=== PATIENT | female | born 1930 | race Caucasian/White ===

== ENCOUNTER 2016-10-09 06:50 | Inpatient (IN) | payer MEDICARE, OTHER ==
--- NOTE | 2016-09-11 16:41 | NUR ---
JOINT REPLACEMENT PREOP CLASS PATIENT ATTENDED JOINT REPLACEMENT PREOP CLASS. CASE MANAGEMENT CONTACT INFORMATION PROVIDED. EDUCATION WAS PROVIDED REGARDING WHAT TO EXPECT BEFORE, DURING AND AFTER SURGERY. INCLUDING: OVERVIEW OF ANATOMY AND PHYSIOLOGY HOSPITAL TREATMENT SCHEDULE THERAPY DEMONSTRATION CASE MANAGEMENT RESPONSIBILITIES DISCHARGE PLANNING EQUIPMENT NEEDS JOINT REPLACEMENT WORKBOOK ANTI-COAGULATION SURGERY STRONG NUTRITIONAL PROTOCOL DISCHARGE INSTRUCTIONS [facility] [place] PATIENT PORTAL, WITH INSTRUCTIONS CJR AND PREOP SURVERY PREOP BATHING- CHG GIVEN ALL PATIENT'S QUESTIONS ANSWERED TO THEIR SATISFACTION. PATIENTS AND COACHES ENCOURAGED TO CALL WITH ANY ADDITIONAL QUESTIONS OR CONCERNS. CM FOLLOWING FOR TRANSITIONAL CARE PLANNING NEEDS DURING HOSPITALIZATION.
[~2016-10-09] VITALS: Ht 152.4 cm; Wt 74.1 kg
[2016-10-09] VITALS (23 sets, daily range): BP systolic 98–141; BP diastolic 54–64; PULSE 49–68; RESP 12–24; TEMP 96.5–98.4; O2SAT 93–99; Ht 152.4 cm; Wt 74.1 kg
[~2016-10-09 06:50] MED LIST: ASCO-297 PO; ASPI-914 PO; BETA1TAB17 PO; CHOL10003 PO; CYAN10009 PO; FAMO20TA8 PO; FAMOTIDINE 20mg IVPB 50 ML IV ONE; LIDOCAINE 1% (10mg/ml) 2ml SDV SQ ONE; MELOXICAM 15 MG TABLET PO ONE; METOCLOPRAMIDE 10mg/2ml INJECTION IV ONE; TIMO15DR15 LEFT EYE; UBID100C18 PO; VIT1CAPS5 PO; [UNRECOGNIZED DRUG - CODE] PO
--- OUTSIDE RECORDS SUMMARY | 2016-10-09 06:57 | XMS REPORT | Continuity of Care Document ---
Author Author [facility] Organization [facility] Address Unknown Phone Unavailable Support Name Relationship Address Phone JUSTINA HOANG MD Caregiver [address] [place] [address] Unavailable JUSTO DENNY MD Caregiver [address] [facility] [place] [address] Unavailable EDUARD DAVIS MD Caregiver [address] [place] [address] Unavailable HARJEET ROMAN DO Caregiver Unknown Unavailable MARYELLENJOVANA JO-ANN Next Of Kin [address] [place], [place] [id number] Insurance Providers Guarantor Ephraim Sanz Address [address] [place], [place] [id number] Email [email or web address] Payer [employer] Policy Number [id number] Subscriber's Name Ephraim Sanz Relationship 18 Self Effective Date 95 Payer Medicare Policy Number [id number] Subscriber's Name Ephraim Sanz Relationship 18 Self Effective Date 95 Advance Directives Directive Response Recorded Date/Time Ordered Resuscitation Status Full Code 04/10/16 3:07am DPOA for Healthcare Only Y DPOA shared by patient's daughters 04/10/16 4:54pm Living Will Yes 04/10/16 5:31am Problems Active Problems Medical Problem Onset Date Status Bradycardia Unknown Chronic DJD (degenerative joint disease) Unknown Chronic Dyslipidemia Unknown Chronic Glaucoma Unknown Chronic HTN (hypertension) Unknown Chronic Past Problems Medical Problem Onset Date Chest pain Unknown Medications Current Home Medications Medication Dose Units Route Directions Days Qty Instructions Start Date Ascorbic Acid (Vitamin C) 1,000 Mg Tablet 1,000 Mg Oral Daily 09/17 Aspirin As Needed 04/10/16 Aspirin (Low Dose Aspirin Ec) 81 Mg Tablet. 1 Tab Oral Daily 30 Tablet 04/10/16 Beta-Carotene(A) W-C & E/Min (Vision Vitamins) 1 Tab Tablet 1 Tab Oral Daily 02/04/10 Cholecalciferol (Vitamin D) 1,000 Unit Capsule 1,000 Unit Oral Daily 07/14/09 Famotidine (Pepcid) 20 Mg Tablet 1 Tab Oral Bedtime 30 Days 30 Tablet 04/10/16 Lisinopril/Hydrochlorothiazide (Lisinopril-Hctz 20-25MG Tab) 1 Tab Tablet 1 Tab Oral Daily 07/14/09 Timolol Maleate (Timolol Maleate 0.5%) 15 Ml Drops 1 Drop Left Eye Only Twice A Day 07/08/13 Ubidecarenone (Co Q-10) 100 Mg Capsule 100 Mg Oral Daily 07/14/09 Past Home Medications Medication Directions Ordered Status Ultimate Bone Supp , 1 Tab Oral Twice A Day 07/08/13 Discontinued Social History Social History Problem Response Recorded Date/Time Onset Date Status Reason for Hospitalization chest pain 04/10/2016 4:52pm Not Applicable Not Applicable Chewing Tobacco Status No 08/06/2013 7:41am Not Applicable Not Applicable Hx Substance Use No 04/10/2016 1:52am Not Applicable Not Applicable Hx Alcohol Use No 04/10/2016 1:52am Not Applicable Not Applicable Has the pt used tobacco in the last 12 months No 04/10/2016 5:34am Not Applicable Not Applicable Query Response Start Date Stop Date Smoking Status Never smoker Hospital Discharge Instructions Instructions: Care Instructions: I was in the hospital because (patient own words): pain in chest Discharge Diet: regular Discharge Activity: As tolerates Follow Up Appointments: Schedule follow-up appointment with Dr. Roman in one to 2 weeks for reevaluation. Call Dr. uKo's office to schedule follow-up appointment for stress testing [phone] Pending Lab / Results: No Pending Lab Patient Instructions: New medications: One baby aspirin daily (as a precaution) Pepcid (famotidine) 20 mg daily at bedtime for acid reflux as a possible cause of chest pain Expected Signs/Symptoms: none Notify Physician If: Recurrent chest pain especially if associated with sweating or difficulty breathing, heartburn, nausea or vomiting During Business Hours:: Please call the physician's office at After Business Hours:: Please call [phone] and have the mixer operator tablets page the physician. Pain Management/Treatment: Tylenol 1-2 tablets 4 times daily as needed; one aspirin daily for pain is fine Wound/Incision Care: NA Durable Medical Equipment: NA Condition at time of discharge: Good Plan of Care Discharge Date 04/10/16 5:23pm Disposition 01 DISCHARGED HOME, SELF-CARE Instructions/Education Provided DI for Chest Pain Prescriptions See Medication Section Care Plan and Goals See Discharge Instructions Section Functional Status Query Response Date Recorded Mobility Status Ambulatory April 10, 2016 6:33am Assistive Devices None April 10, 2016 6:33am Activity Limitations None April 10, 2016 6:33am Feeding Ability Independent April 10, 2016 6:33am Toileting Ability Independent April 10, 2016 6:33am Grooming Ability Independent April 10, 2016 6:33am Dressing Ability Independent April 10, 2016 6:33am Driving Ability Independent April 10, 2016 6:33am Housework Ability Independent April 10, 2016 6:33am Meal Preparation Ability Independent April 10, 2016 6:33am Stair Climbing Ability Independent April 10, 2016 6:33am Ability to complete ADL's impeded by No change April 10, 2016 6:33am Cognitive/Perceptual Impairments None April 10, 2016 6:33am Preferred Method of Learning Listening April 10, 2016 6:33am Allergies, Adverse Reactions, Alerts Allergen Type Severity Reaction Status Last Updated No Known Drug Allergies Allergy Unknown Active 04/10/16 Immunizations Immunization Event Date Type Not Given Reason Dose Number 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[employer] VIS Given Pneumococcal conjugate PCV 13 04/10/16 Not Given Patient Refused Med Query Response on File Recorded Date/Time Hx Influenza Vaccination No 04/10/16 5:34am Hx Pneumococcal Vaccination Y unknown 04/10/16 5:34am Hx Influenza Vaccination No 04/10/16 5:34am Vital Signs Acute Vital Signs Vital Response Date/Time Temperature (Fahrenheit) 96.3 deg F (96.8 - 99.1) 04/10/2016 3:32pm Temperature (Calculated Celsius) 35.99568 degrees C (36.0 - 37.3) 04/10/2016 3:32pm Pulse Rate (adult) 56 bpm (60 - 100) 04/10/2016 3:32pm Respiratory Rate 18 breaths/min (10 - 20) 04/10/2016 3:32pm O2 Sat by Pulse Oximetry 98 % (90 - 100) 04/10/2016 3:32pm Oxygen Delivery Method Room Air 04/10/2016 3:32pm Blood Pressure 133/67 mm Hg 04/10/2016 3:32pm Blood Pressure Source Automatic Cuff 04/10/2016 3:32pm Height (Feet) 5 feet 04/10/2016 4:54pm Height (Inches) 2.00 inches 04/10/2016 4:54pm Weight (Kilograms) 71.700 kg 04/10/2016 7:25am Body Mass Index (BMI) 29.0 04/10/2016 5:29am Results Laboratory Results Test Name Result Units Flags Reference Collection Date/Time Result Date/ Time Comments White Blood Count 8.1 T/MM3 4.5-11.0 04/10/2016 1:42am 04/10/2016 1: 46am Red Blood Count 4.15 M/MM3 4.00-5.20 04/10/2016 1:42am 04/10/2016 1: 46am Hemoglobin 13.6 GM/DL 12-16 04/10/2016 1:42am 04/10/2016 1:46am Hematocrit 39.8 % 36-46 04/10/2016 1:42am 04/10/2016 1:46am Mean Corpuscular Volume 95.9 UM3 80-100 04/10/2016 1:42am 04/10/2016 1: 46am Mean Corpuscular Hemoglobin 32.8 UUG 26-34 04/10/2016 1:42am 2015 1:46am Mean Corpuscular Hemoglobin Concent 34.2 GM/DL 31-37 04/10/2016 1:42am 04/10/2016 1:46am RDW Standard Deviation 42.1 FL 36.9-50.2 04/10/2016 1:42am 04/10/2016 1 :46am Platelet Count 233 T/MM3 130-400 04/10/2016 1:42am 04/10/2016 1:46am Mean Platelet Volume 9.5 UM3 9.4-12.4 04/10/2016 1:42am 04/10/2016 1: 46am Neutrophils (%) (Auto) 50.4 % 33-66 04/10/2016 1:42am 04/10/2016 1: 46am Lymphocytes (%) (Auto) 33.2 % 23-45 04/10/2016 1:42am 04/10/2016 1: 46am Monocytes (%) (Auto) 7.1 % 0-9.0 04/10/2016 1:42am 04/10/2016 1:46am Eosinophils (%) (Auto) 8.7 % H 0-4 04/10/2016 1:42am 04/10/2016 1:46am Basophils (%) (Auto) 0.5 % 0-2 04/10/2016 1:42am 04/10/2016 1:46am Immature Granulocyte % (Auto) 0.1 % 0.0-0.5 04/10/2016 1:42am 2015 1:46am Absolute Neutrophils (auto) 4.1 T/MM3 1.8-7.7 04/10/2016 1:42am 2015 1:46am Absolute Lymphocytes (auto) 2.7 T/MM3 1-4.8 04/10/2016 1:42am 2015 1:46am Absolute Monocytes (auto) 0.6 T/MM3 0-0.8 04/10/2016 1:42am 04/10/2016 1:46am Absolute Eosinophils (auto) 0.7 T/MM3 H 0-0.5 04/10/2016 1:42am 2015 1:46am Absolute Basophils (auto) 0.0 T/MM3 0-0.2 04/10/2016 1:42am 04/10/2016 1:46am Absolute Immature Granulocyte (auto 0.01 T/MM3 0.00-0.03 04/10/2016 1: 42am 04/10/2016 1:46am Icterus Index < 2 0-7 04/10/2016 1:42am 04/10/2016 2:14am Chemistry Specimen Hemolysis < 15 0-25 04/10/2016 3:59pm 04/10/2016 4 :32pm 0-25: Specimen Exhibited No Hemolysis. Turbidity < 20 0-20 04/10/2016 1:42am 04/10/2016 2:14am Sodium Level 139 MEQ/L 134-144 04/10/2016 1:42am 04/10/2016 2:14am Potassium Level 4.4 MEQ/L 3.6-5 04/10/2016 1:42am 04/10/2016 2:14am Chloride Level 100 MEQ/L 98-107 04/10/2016 1:42am 04/10/2016 2:14am Carbon Dioxide Level 26 MEQ/L 22-30 04/10/2016 1:42am 04/10/2016 2: 14am Anion Gap 13 MEQ/L 5-15 04/10/2016 1:42am 04/10/2016 2:14am Blood Urea Nitrogen 32.0 MG/DL H 7-17 04/10/2016 1:42am 04/10/2016 2: 14am Creatinine 0.7 MG/DL 0.7-1.2 04/10/2016 1:42am 04/10/2016 2:14am BUN/Creatinine Ratio 46 RATIO H 6-26 04/10/2016 1:42am 04/10/2016 2: 14am Glomerular Filtration Rate Calc 80 04/10/2016 1:42am 04/10/2016 2: 14am Glucose Level 98 MG/DL 65-110 04/10/2016 1:42am 04/10/2016 2:14am Calculated Osmolality 275 MOSM/KG 261-280 04/10/2016 1:42am 04/10/2016 2:14am Calcium Level 9.7 MG/DL 8.4-10.2 04/10/2016 1:42am 04/10/2016 2:14am Total Bilirubin 0.70 MG/DL 0.20-1.30 04/10/2016 1:42am 04/10/2016 2: 14am Alkaline Phosphatase 87 U/L 38-126 04/10/2016 1:42am 04/10/2016 2:14am Total Protein 7.0 G/DL 6.3-8.2 04/10/2016 1:42am 04/10/2016 2:14am Albumin 4.1 G/DL 3.5-5.0 04/10/2016 1:42am 04/10/2016 2:14am Globulin 2.9 G/DL 2.4-3.6 04/10/2016 1:42am 04/10/2016 2:14am Albumin/Globulin Ratio 1.4 RATIO 1.1-2.2 04/10/2016 1:42am 04/10/2016 2 :14am Aspartate Amino Transf (AST/SGOT) 20 U/L 14-36 04/10/2016 1:42am 2015 2:14am Alanine Aminotransferase (ALT/SGPT) 29 U/L 9-52 04/10/2016 1:42am 04/10 2:14am Troponin I < 0.012 ng/ml 0-0.12 04/10/2016 3:59pm 04/10/2016 4:32pm Troponin values with a difference of 55% increase from orginal troponin value represent a true biological DELTA value. (%increase Calc=Orginal Troponin value, divided by subsequent Troponin value, multiplied by 100) Lipase 166 U/L 23-300 04/10/2016 1:42am 04/10/2016 2:14am Hemoglobin A1c 5.5 % L 6.1-7.9 04/10/2016 3:48am 04/10/2016 6:58am < 6.0 NON-DIABETIC RANGE 6.1-7.9 [facility] TARGET RANGE >8.0 ACTION SUGGESTED Name: EPHRAIM SANZ Unit #: [id number] : [id number] Sex: F Admit Date: 04/10/16 Loc / Svc: MED Discharge Date: DIAGNOSTIC IMAGING REPORT Report #: [id number] [place], [place] INDICATION: ITS.REASON: left-sided chest pain PROCEDURE: CHEST 2-VIEWS UPRIGHT (PA \T\ LAT) Encounter: Initial COMPARISON: None FINDINGS: The lungs are clear without evidence of focal abnormal airspace opacity. There is no pleural effusion or pneumothorax. Calcified right upper lobe granuloma. The heart size, mediastinal contours and pulmonary vascularity are within normal limits. Degenerative change and bony demineralization in the spine. Age-indeterminate upper lumbar compression fracture. IMPRESSION: No acute cardiopulmonary disease. . Procedures No known history of procedures. Encounters Encounter Location Arrival/Admit Date Discharge/Depart Date Attending Provider Discharged Inpatient (obs) [facility] 04/10/16 3:02am 04/10/16 5: 23pm EDUARD DAVIS MD
--- OUTSIDE RECORDS SUMMARY | 2016-10-09 06:57 | XMS REPORT | Continuity of Care Document ---
Author Author [facility] Organization [facility] Address Unknown Phone Unavailable Allergies Medications Problems Procedures Code Description Performed By Performed On 14.73 ANTERIOR MECHAN VITRECT Gabe Brice MD 04/17/2013 14.9 OTHER POST SEGMENT OPS Gabe Brice MD 04/17/2013 Results Test Result Range HEMOGLOBIN - 04/17/13 06:08 MEAN CELL VOLUME 96.2 fl 80.0-100.0 HEMOGLOBIN 13.7 gm/dL 12.0-16.0 METABOLIC PANEL, BASIC - 04/17/13 06:08 POTASSIUM 3.9 mmol/L 3.5-5.3 EST GFR (MDRD) > 60 mL/min > 59 ANION GAP 9 mmol/L 5-15 EST CrCl (CG) 48 mL/min > 59 GLUCOSE 105 mg/dL 70-99 CALCIUM 9.0 mg/dL 8.5-10.1 BLOOD UREA NITROGEN 23 mg/dL 7-20 CREATININE 0.7 mg/dL 0.6-1.0 SODIUM 140 mmol/L 135-148 CHLORIDE 103 mmol/L 98-110 CARBON DIOXIDE 28 mmol/L 21-32 Encounters ACCT No. Visit Date/Time Discharge Status Pt. Type Provider Facility Loc./Unit Complaint [id number] 04/17/2013 05:29:00 2012 09:17:00 DIS Outpatient Yuniel FORREST, Gabe Pittman [facility]
--- OUTSIDE RECORDS SUMMARY | 2016-10-09 06:57 | XMS REPORT | Continuity of Care Document ---
Author Author [facility] Organization [facility] Address Unknown Phone Unavailable Support Name Relationship Address Phone TREY SAEED MD Caregiver [address] [place] [address] [place] [phone] CYDNEY CARBALLO FACS, MD Caregiver [address] [place] [address] [place] [phone] JO-ANN GARCIA Next Of Kin [address] [place] [address] Insurance Providers Payer Name Policy Number Subscriber Name Relationship Medicare [id number] Ephraim Sanz 18 Self [employer] [id number] Ephraim Sanz 18 Self Advance Directives Directive Response Recorded Date/Time Dr Carbajal Resuscitation Status Full Code 04/07/14 2:13pm Problems No known problems or medical conditions. Medications Medication Dose Route Sig Days/Qty Instructions Order Date Discontinued Date Status Lisinopril/Hydrochlorothiazide 1 Tab PO DAILY 07/14/09 Active Beta-Carotene(A) W-C & E/Min 1 Tab PO DAILY 07/14/09 Active Cholecalciferol 1,000 Unit PO DAILY 07/14/09 Active Ubidecarenone 100 Mg PO DAILY 07/14/09 Active Ascorbic Acid 1,000 Mg PO DAILY 07/14/09 Active [Ultimate Bone Supp] 1 Tab PO TWICE A DAY 07/08/13 Active Timolol Maleate 1 Drop LEFT EYE TWICE A DAY 07/08/13 Active Social History Social History Problem Response Recorded Date/Time Smoking Status Never smoker 04/07/2014 2:08pm Chewing Tobacco Status No 08/06/2013 7:41am Hx Substance Use No 04/07/2014 1:24pm Hx Alcohol Use No 04/07/2014 1:24pm Has the pt used tobacco in the last 12 months No 04/07/2014 1:24pm Query Response Start Date Stop Date Smoking Status Never smoker Hospital Discharge Instructions No hospital discharge instructions. Plan of Care No plan of care. Functional Status No functional status results. Allergies, Adverse Reactions, Alerts Allergen Type Severity Reaction Status Last Updated No Known Drug Allergies Allergy Unknown Active 06/13/09 Immunizations Name Given Type Hx Influenza Vaccination No Historical Hx Pneumococcal Vaccination Y OVER FIVE YEARS AGO Historical Hx Influenza Vaccination No Historical Vital Signs Acute Vital Signs Vital Response Date/Time Temperature (Fahrenheit) 98.0 deg F (96.8 - 99.1) Temperature (Calculated Celsius) 36.38916 degrees C (36.0 - 37.3) Temperature Source Temporal Pulse Rate (adult) 60 bpm (60 - 100) Respiratory Rate 16 breaths/min (10 - 20) O2 Sat by Pulse Oximetry 99 % (90 - 100) Oxygen Delivery Method Room Air Blood Pressure 129/61 mm Hg Blood Pressure Source Automatic Cuff Height 5 ft 2 in Weight 163 lb Body Mass Index 29.0 kg/m^2 Results Test Source Date Result Interp. Ref. Range Comments Anion Gap July 15, 2009 5:05am 6.8 MEQ/L N 5-15 BUN/Creatinine Ratio July 15, 2009 5:05am 22 RATIO DN 6-26 Basophils # (Auto) July 15, 2009 5:05am 0.0 T/MM3 N 0-0.2 Basophils (%) (Auto) July 15, 2009 5:05am 0.5 % N 0-2 Blood Urea Nitrogen July 15, 2009 5:05am 10.9 MG/DL DN 7-17 Calcium Level July 15, 2009 5:05am 9.0 MG/DL N 8.4-10.2 Calculated Osmolality July 15, 2009 5:05am 267 MOSM/KG N 261-280 Carbon Dioxide Level July 15, 2009 5:05am 28 MEQ/L DN 22-30 Chloride Level July 15, 2009 5:05am 105 MEQ/L N 98-107 Creatinine July 15, 2009 5:05am 0.5 MG/DL L 0.7-1.2 Eosinophils # (Auto) July 15, 2009 5:05am 0.7 T/MM3 H 0-0.5 Eosinophils (%) (Auto) July 15, 2009 5:05am 9.7 % H 0-4 Glucose Level July 15, 2009 5:05am 82 MG/DL N 65-110 Hematocrit July 18, 2009 5:35am 29.7 % L 36-46 Hemoglobin July 15, 2009 5:05am 9.7 GM/DL DL 12-16 Lymphocytes # (Auto) July 15, 2009 5:05am 1.6 T/MM3 N 1-4.8 Lymphocytes (%) (Auto) July 15, 2009 5:05am 22.4 % L 23-45 Mean Corpuscular Hemoglobin July 15, 2009 5:05am 30.6 UUG N 26-34 Mean Corpuscular Hemoglobin Concent July 15, 2009 5:05am 32.0 GM/DL N 31-37 Mean Corpuscular Volume July 15, 2009 5:05am 95.6 UM3 N 80-100 Mean Platelet Volume July 15, 2009 5:05am 10.1 UM3 N 7.4-10.4 Monocytes # (Auto) July 15, 2009 5:05am 0.6 T/MM3 N 0-0.8 Monocytes (%) (Auto) July 15, 2009 5:05am 8.3 % N 0-9.0 Neutrophils # (Auto) July 15, 2009 5:05am 4.3 T/MM3 N 1.8-7.7 Neutrophils (%) (Auto) July 15, 2009 5:05am 59.1 % N 33-66 Platelet Count July 15, 2009 5:05am 207 T/MM3 N 130-400 Potassium Level July 15, 2009 5:05am 3.5 MEQ/L L 3.6-5 RDW Standard Deviation July 15, 2009 5:05am 41.9 FL N 36.9-50.2 Red Blood Count July 15, 2009 5:05am 3.17 M/MM3 DL 4.00-5.20 Sodium Level July 15, 2009 5:05am 140 MEQ/L N 134-144 Tests Not Done June 14, 2009 9:47am Not done - Has specimen been collected/obtained? Y Urine Bilirubin June 14, 2009 9:47am Negative - Has specimen been collected/obtained? Y Urine Blood June 14, 2009 9:47am Negative - Has specimen been collected/obtained? Y Urine Collection Type June 14, 2009 9:47am Voided - Has specimen been collected/obtained? Y Urine Color June 14, 2009 9:47am Yellow - Has specimen been collected/obtained? Y Urine Glucose (UA) June 14, 2009 9:47am Negative - Has specimen been collected/obtained? Y Urine Ketones June 14, 2009 9:47am Negative - Has specimen been collected/obtained? Y Urine Leukocyte Esterase June 14, 2009 9:47am Negative - Has specimen been collected/obtained? Y Urine Nitrite June 14, 2009 9:47am Negative - Has specimen been collected/obtained? Y Urine Protein June 14, 2009 9:47am Negative - Has specimen been collected/obtained? Y Urine Specific [place] June 14, 2009 9:47am 1.015 - Has specimen been collected/obtained? Y Urine Turbidity June 14, 2009 9:47am Clear - Has specimen been collected/obtained? Y Urine Urobilinogen June 14, 2009 9:47am Normal EU/DL - Has specimen been collected/obtained? Y Urine pH June 14, 2009 9:47am 8.0 - Has specimen been collected/ obtained? Y White Blood Count July 15, 2009 5:05am 7.3 T/MM3 N 4.5-11.0 Methicillin-Resist S.aureus DNA PCR May 23, 2009 9:53am Negative - Glomerular Filtration Rate Calc July 15, 2009 5:05am 119 - MRSA Specimen Source May 23, 2009 9:53am Nasal - Gram Stain Knee, Intraoperative Site-Right July 14, 2009 3:40pm Procedures Procedure Status Date Provider(s) Colonoscopy with polypectomy and biopsy completed 04/08/14 CYDNEY CARBALLO MD, FACS, CWS
--- OUTSIDE RECORDS SUMMARY | 2016-10-09 06:57 | XMS REPORT | Referral Summary ---
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 Name Role Phone Kyleigh Roman Primary Care Physician [phone] Encounter VC Date(s): 04/20/16 - 04/20/16 [facility], [address] [place] [id number] Discharge Disposition: 01-Home or Self Care Attending Physician: Yobani Gonzalez APRN Admitting Physician: Yobani Gonzalez APRN Vital Signs Most recent to 1 oldest [Reference Range]: Temperature Tympanic 36.4 degC [36.6-38.1 degC] *LOW* (04/20/16 2:18 PM) Peripheral Pulse 71 bpm Rate [60-100 bpm] (04/20/16 2:18 PM) Blood Pressure 118/64 mmHg [90-140/60-90 mmHg] (04/20/16 2:18 PM) SpO2 97 % (04/20/16 2:18 PM) Problem List Condition Effective Dates Status Health Status Informant Abnormal reflex Active (finding)(Confirmed) Benign essential Active hypertension (disorder)(Confirmed ) Constipation Active (disorder)(Confirmed ) DDD (degenerative Active disc disease), lumbar(Confirmed) DM (diabetes Active mellitus), type [address] uncntr(Confirmed) Hand Resolved numbness(Confirmed) Esparza's Active reflex(Confirmed) Hypercholesterolemia Active (Confirmed) Hyperlipidemia(Confi Active rmed) Hypertension(Confirm Active ed) Leg Resolved weakness(Confirmed) Low back pain Active (finding)(Confirmed) Neck pain Active (finding)(Confirmed) Osteoarthritis(Confi Resolved rmed) Overweight(Confirmed Active ) Skin Active cancer(Confirmed) Skin sensation Active disturbance (finding)(Confirmed) Allergies, Adverse Reactions, Alerts No Known Medication Allergies Medications ascorbic acid 1000 mg oral tablet 1,000 mg 1 tabs, Oral, Daily, 0 Refill(s) Start Date: 04/11/16 Status: Ordered aspirin 81 mg, Oral, Daily, 0 Refill(s) Start Date: 04/11/16 Status: Ordered cholecalciferol 1000 intl units oral tablet 1,000 Intl_Units 1 tabs, Oral, Daily, # 30 tabs, 0 Refill(s) Start Date: 04/11/16 Status: Ordered Co Q-10 100 mg, Oral, Daily, 0 Refill(s) Start Date: 04/11/16 Status: Ordered famotidine 20 mg oral tablet 20 mg 1 tabs, Oral, Bedtime (once a day), 0 Refill(s) Start Date: 04/11/16 Status: Ordered lisinopril-hydrochlorothiazide 20 mg-25 mg oral tablet 1 tabs, Oral, Daily, # 90 tabs, 4 Refill(s), Pharmacy: [facility] Start Date: 09/22/15 Status: Ordered PreserVision Oral, Daily, 0 Refill(s) Start Date: 04/11/16 Status: Ordered timolol maleate 0.5% ophthalmic solution 1 drops, Eye-Left, BID, 0 Refill(s) Start Date: 04/11/16 Status: Ordered Vitamin B-12 0 Refill(s) Start Date: 04/20/16 Status: Ordered Vitamin B12 0 Refill(s) Start Date: 04/20/16 Status: Ordered Results No data available for this section Immunizations Vaccine Date Refusal Reason tetanus-diphth toxoids (Td) adult/adol 10/19/02 Procedures Procedure Date Related Diagnosis Body Site Colonoscopic polypectomy1 04/08/14 Mammogram 2011 Bone density scan 06/12/07 Colonoscopy 1989' c-scope normal per patient 1989 Cataract extraction Knee replacement2 Surgery-knee x3 1Tubular adenoma 1, chronic active proctitis, although patient is without clinical symptoms and would not recommend medical treatment unless rectal bleeding or diarrhea develops. Likely not need a repeat colonoscopy unless symptoms warrant due to age. 2right Social History Social History Type Response Smoking Status Never smoker Assessment and Plan No data available for this section
[2016-10-09] MEDS ORDERED: LR 1,000 ML IV SCH (07:00)
[2016-10-09] MEDS ORDERED: ACETAMINOPHEN 500 MG TABLET PO ONE (07:00)
[2016-10-09] MEDS ORDERED: ONDANSETRON 4mg/2ml INJECTION IV ONE (07:00)
[2016-10-09] MEDS ORDERED: NOZIN NASAL SWAB NS ONE ×2 (07:00→11:45)
[2016-10-09 07:34] LABS: ANION GAP 15 MEQ/L (5-15); BUN/CREATININE RATIO 68 RATIO (6-26); CALCIUM 9.8 MG/DL (8.4-10.2); CHLORIDE 101 MEQ/L (98-107); CO2 - CARBON DIOXIDE 29 MEQ/L (22-30); CREATININE 0.6 MG/DL (0.7-1.2); GLOMERULAR FILTRATION RATE 95; GLUCOSE 102 MG/DL (65-110); POTASSIUM 3.9 MEQ/L (3.6-5); SODIUM 145 MEQ/L (134-144)
[2016-10-09] MEDS ORDERED: DEXAMETHASONE 4mg/ml - 1ml INJECTION IV ONE (08:00)
--- NOTE | 2016-10-09 08:12 | ANESPREOP ---
Anesthesia Record Date and Time DATE: 10/09/16 TIME: 08:07 Proposed Surgical Procedure LEFT TOTAL KNEE ARTHROPLASTY NPO since: mn Allergies: Coded Allergies: No Known Drug Allergies (Verified Allergy, Unknown, 10/09/16) Ht/Wt/BMI Height: 5 ' 0.00 " Weight: 70.400 kg BMI: 30.3 kg/m2 Vital Signs Date Time Temp Pulse Resp B/P Pulse Ox O2 Delivery O2 Flow Rate FiO2 10/09/16 07:12 98.4 67 14 141/64 95 Room Air Medications Inpatient Medications Current Medications Medications (Trade) Dose Ordered Sig/Antionette Start Time Stop Time Status Last Admin Dose Admin Lactated Ringer's (Lactated Ringers) 1,000 ml @ 50 mls/hr Q20H 10/09/16 07:00 10/09/16 07:52 50 MLS/HR Ascorbic Acid (Vitamin C) 1,000 Mg Tablet, 1,000 MG PO DAILY, (Reported) Last Taken: on 10/01/16 Aspirin *EC* (Low Dose Aspirin EC) 81 Mg Tablet.dr , 1 TAB PO DAILY, (Reported) Last Taken: on 10/01/16 Beta-Carotene(A) W-C & E/Min (Vision Vitamins) 1 Tab Tablet, 1 TAB PO DAILY, (Reported) Last Taken: on 10/01/16 Cholecalciferol (Vitamin D) 1,000 Unit Capsule, 1, 000 UNIT PO DAILY, (Reported) Last Taken: on 10/01/16 Cyanocobalamin (Vitamin B-12) (Vitamin B-12) 1,000 Mcg Tablet, 1 TAB PO DAILY, (Reported) Last Taken: on 10/01/16 Famotidine (Famotidine) 20 Mg Tablet, 1 TAB PO HS, (Reported) Last Taken: on Unknown Date & Time Lisinopril/Hydrochlorothiazide ( Lisinopril-Hctz 20-25MG Tab) 1 Tab Tablet, 1 TAB PO DAILY, (Reported) Last Taken: on 10/08/16 0700 Timolol Maleate 0.5% (Timolol Maleate 0.5%) 15 Ml Drops, 1 DROP LEFT EYE BID, (Reported) Last Taken: on 10/08/16 0800 Ubidecarenone (Co Q-10) 100 Mg Capsule, 100 MG PO HS, (Reported) Last Taken: on 10/01/16 Vit A/Vit C/Vit E/Zinc/Copper (Preservision Areds Softgel) 1 Each Capsule, 1 CAP PO DAILY, (Reported) Last Taken: on 10/01/16 Currently on Beta Judit: No Medical/Surgical History Anesthesia PMH: Reports: *Hypertension, Arthritis (OA PER HX), Hyperlipidemia, Other (Esparza's reflex) Smoking Status: Never smoker Use Chewing Tobacco?: No Second Hand Exposure: No Substance Use Type: does not use Alcohol Intake: none HX of Last Menstrual Period: POST MENOPAUSAL Past Surgical History Orthopedic Surgeries: Yes - RIGHT KNEE, RIGHT ANKLE Abdominal Surgeries: Genitourinary Surgeries: Cardiac Surgeries: Endocrine Surgeries: Reproductive Surgeries: Neurological Surgeries: Ear Surgeries: Nose Surgeries: Throat Surgeries: Other Surgeries: Yes - COLONOSCOPY, CATARACT PER HX Anesthesia Adverse Reactions: FOUND none Family Hx of Anesthesia Advers: none Hx of Motion Sickness: No Pertinent Findings Laboratory Tests 10/09/16 07:19 Physical Exam Respiratory: Bilat breath sounds equal, Lungs clear Cardiovascular: FOUND Regular rate, rhythm Airway Assessment Mallampati Score: II TMD: 3 Fingerbreadths Neck Extension: Fair Overall Assessment: No Airway Concerns ASA: 2 Plan Anesthesia Plan: LMA, GETA Regional: Spinal Peripheral Nerve Block: Saphenous - LT Discussion Discussed risks/options/alternatives of anesthesia and questions answered. Patient consents. Nursing pain assessment noted. Present: Family Member Attestation Statement Prior to the delivery of any anesthetic medication, I examined the patient, developed the plan, obtained the patient's consent and discussed the risk and benefits of the procedure with the patient/guardian. MASOUD MCDUFFIE CRNA October 09, 2016 08:12
--- NOTE | 2016-10-09 09:46 | NUR ---
CM CM ATTEMPTED VISIT. PT IS AT PROCEDURE. NO FAMILY IS PRESENT IN THE ROOM. CM CONTACT INFORMATION IS LEFT AT THE BEDSIDE.
[2016-10-09] MEDS ORDERED: TRANEXAMIC ACID 1,000 MG in NORMAL SALINE 100 ML IV ONE ×2 (10:00→11:00)
[2016-10-09] MEDS ORDERED: CEFAZOLIN 2 GM VIAL IV ONE (10:00)
[2016-10-09] MEDS ORDERED: EPINEPHRINE 0.25 MG, BUPIVACAINE 0.25% 75 MG, MORPHINE SULFATE 15 MG, KETOROLAC 60 MG i... INJ ONE ×5 (11:00)
--- NOTE | 2016-10-09 11:09 | PDOPERATE ---
Operative Report Date of Operation 10/09/16 Side: Left Preoperative Diagnosis: knee primary DJD Postoperative Diagnosis Same as preoperative diagnosis. Operation/Procedure: total knee arthroplasty (left) Surgeon Mere Sauer MD Blind Eyeletter GISELLA Cole Complications None. Regional Block: Spinal Estimated Blood Loss See Anesthesia Record. Fluids Please See Anesthesia Record. Description of Operation Ms. Sanz and her left knee were identified and marked in the the preoperative holding area. She was then brought back to the operating suite and proper anesthesia was administered. She was then positioned supine on the operating table. The left lower extremity was then prepped and draped in my normal sterile fashion. Timeout was performed with all operating room personnel. The leg was exsanguinated and tourniquet inflated 250 mmHg. the tourniquet was let down after femoral cuts. A standard anterior incision followed by a medial parapatellar approach was utilized. She had severe disease in the lateral compartment and less so in the patellofemoral compartment and medial compartment. A distal femoral cut was made in 5 of valgus using intramedullary guide. The femur was sized at a 4 and rotation set using the epicondylar axis. Distal femoral cuts were performed. A proximal tibial cut was made using extramedullary guide. Remaining osteophytes and meniscus were removed. Gaps were checked and they were well balanced and rectangular. Her bone quality was very poor especially in the proximal tibia and there was some impaction of the proximal tibia anteriorly with trialing. Trial components were placed with a 11 mm spacer. This allowed for full range of motion and the patella tracked well. The knee was stable throughout range of motion. The patella was resurfaced with the knee in extension to a size 29. The tibia rotation was then marked and the tibia stamped at the proper rotation at a size 4. Due to her bone quality I did placed a 50 mm stem extension on the tibia. The bone was prepared for cementing and all components cemented into place and allowed to cure in extension. Betadine solution was used for 3 minutes during the curing period and then fully irrigated out with 1 L of normal saline. The tourniquet was deflated and hemostasis obtained with electrocautery. After the cement had cured the knee was taken through range of motion check for balance and stability which were good. Vancomycin powder was placed into the wound. The arthrotomy was closed with #1 Vicryl. The remainder of the wound was then closed by my school health assistant utilizing 2-0 vycral in the subcutaneous tissue. 4-0 monocryl was used in the subcuticular layer followed by dermabond and a sterile dressing. After closure the patient will be transferred to the recovery room under the care of anesthesia. TAWANNA SAUER MD October 09, 2016 11:09
[2016-10-09] MEDS: NORMAL SALINE 1,000 ML IV SCH (11:40)
[2016-10-09] MEDS ORDERED: SENNOSIDES 8.6 MG TABLET PO PRN (11:45)
[2016-10-09] MEDS ORDERED: DiphenhydrAMINE 25 MG CAPSULE PO PRN (11:45)
[2016-10-09] MEDS ORDERED: NAPROXEN 220 MG TABLET PO PRN (11:45)
[2016-10-09] MEDS ORDERED: LORAZEPAM 1 MG TABLET PO PRN (11:45)
[2016-10-09] MEDS ORDERED: PRN ORDERS MC (11:45)
[2016-10-09] MEDS ORDERED: ONDANSETRON 4mg/2ml INJECTION IV PRN (11:45)
[2016-10-09] MEDS ORDERED: DiphenhydrAMINE 50 MG/ML INJECTION IV PRN (11:45)
--- NOTE | 2016-10-09 12:11 | ANESPD ---
Peripheral Nerve Blockade Physician: Tan Sauer MD Date: 10/09/16 Surgical Procedure: left TKA Discussion Discussed risks/options/alternatives of anesthesia and questions answered. Patient consents. Nursing pain assessment noted. Block Start: 11:55 Block Stop: 12:00 Block Employed: Adductor Canal, Single Injection Indication: post-operative pain Approach: left side confirmed Position: supine Patient: Consent, risks/benefits discussed, Informed Monitors: EKG, SpO2, NIBP IV Sedation: Yes (post op) Initial Vital Signs First Documented Vital Signs Date Time Temp Pulse Resp B/P Pulse Ox O2 Delivery O2 Flow Rate FiO2 10/09/16 07:12 98.4 67 14 141/64 95 Room Air Post Vital Signs Vital Signs Date Time Temp Pulse Resp B/P Pulse Ox O2 Delivery O2 Flow Rate FiO2 10/09/16 07:12 98.4 67 14 141/64 95 Room Air Prep: chlorhexadine/ETOH, sterile technique Ultrasound Used?: Yes Nerve Simulator Needle Depth: 3 Muscle Response: No Parathesia/Pain: none Injectate Ropivacaine (%): 0.5 Ropivacaine (mL): 20 Was Epi 1:200,000 Used?: No Injection Injection made incrementally with constant monitoring and aspiration every [5] ml. MASOUD MCDUFFIE CRNA October 09, 2016 12:11
--- NOTE | 2016-10-09 12:35 | NUR ---
ARRIVAL PT TO ROOM 111 PER CART. PT TRANSFERRED FROM CART TO BED WITH ASSIST OF 3 WITH SLIDE BOARD. PT DENIES PAIN AT THIS TIME. ABLE TO WIGGLE TOES. PT DENIES SOA. PT ON RA. HEART RATE 50'S. VS STABLE. PT RESTING IN BED WITH ALARM. CALL LIGHT WITHIN REACH. WILL CONTINUE TO MONITOR.
--- NOTE | 2016-10-09 12:35 | DI ---
Indication: ITS.REASON: POSTOP left knee replacement PROCEDURE: KNEE LEFT 2 VIEW: Encounter: Initial Comparison: None Findings: Postoperative changes of left total knee replacement are seen. There is expected postoperative subcutaneous gas. No evidence of hardware failure or acute fracture. No retained radiopaque surgical instruments or sponges. Overlying material causing artifact. Impression: New left total knee prosthesis without evidence of immediate complication. .
--- NOTE | 2016-10-09 12:36 | ANESPO ---
Post-Op Note Date 10/09/16 Time: 12:30 Status Pt Participated in Evaluation: Pt participated in person Vital Signs Date Time Temp Pulse Resp B/P Pulse Ox O2 Delivery O2 Flow Rate FiO2 10/09/16 12:30 58 18 107/58 98 Room Air 10/09/16 12:25 97.0 Respiratory Function: Airway patent, Regular respirations Cardiovascular Function: Regular pulse Mental Status: Alert/oriented Pain Level Intensity: 0 Unable to Assess Pain Due To: Medicated/Sleeping Hydration: IV infusing Complications during Recovery None apparent Post-Anesthesia Notes moves lower extremeties Follow-Up Instructions Instructions Per Surgeon MASOUD MCDUFFIE CRNA October 09, 2016 12:36
[2016-10-09] MEDS: ACETAMINOPHEN 325 MG TABLET PO SCH ×3 (13:48→21:02)
[2016-10-09] MEDS: TRAMADOL 50 MG TABLET PO PRN ×2 (13:49→14:40)
[2016-10-09] MEDS ORDERED: VANCOMYCIN 1 GRAM INJECTION IV ONE (14:00)
[2016-10-09] MEDS ORDERED: ROPIVACAINE 0.5% (5mg/ml) 30ml INJ INJ ONE (14:00)
[2016-10-09] MEDS ORDERED: MIDAZOLAM 2mg/2ml INJECTION IV ONE (14:00)
[2016-10-09] MEDS: INSULIN ASPART 100 UNIT/ML SQ PRN ×2 (14:18→23:28)
[2016-10-09] MEDS: NOZIN NASAL SWAB NS SCH ×2 (14:19→21:18)
[2016-10-09] MEDS: CEFAZOLIN 2 G in NORMAL SALINE 100 ML IV SCH (17:01)
--- NOTE | 2016-10-09 18:54 | NUR ---
STATUS PT A/O X3. UP WITH ASSIST OF ONE WITH WALKER AND GAIT BELT. PRN TRAMADOL GIVEN FOR PAIN. PT TOLERATED CRACKERS AND WATER, DENIES WANTING TO TRY OTHERS. PT ABLE TO VOID. DENIES SOA. PT ON RA. HEART RATE 71. VS STABLE. PT RESTING IN BED VISITING WITH MULTIPLE FAMILY MEMBERS. CALL LIGHT WITHIN REACH. BED ALARM ON. WILL CONTINUE TO MONITOR.
[2016-10-09] MEDS: TIMOLOL 0.5% EYE DROPS 5ml LEFT EYE SCH (21:02)
[2016-10-09] MEDS: ASPIRIN *EC* 325mg TABLET PO SCH (21:02)
[2016-10-09] MEDS ORDERED: FAMOTIDINE 20 MG TABLET PO SCH (22:00)
[2016-10-09] MEDS ORDERED: SENNOSIDES 8.6 MG TABLET PO SCH (22:00)
--- NOTE | 2016-10-09 23:00 | NUR ---
[employer] Resort Concierge reports SPO2 85%. Pt. is snoring, sleeping soundly. Once awakened, SPO2 increases to 95% within 3-4 minutes. Pt. reports she is aware of snoring. Did not realize her oxygen saturation decreases. Has never had sleep study done. Contacted Resp. Jamie Therapist who sits up oxygen for the night at 2/L per NC. Pt. continues to snore loudly while sleeping during the night; however, oxygen levels remain above 90 %. Patient's heartrate also decreases to the 40s for 5-10 seconds while sleeping during the night. She remains assymtomatic and once awakened her heartrate increases some, She is unaware of slowing heartbeat and decreaseing SPO2. Ambulates to bathroom several times during the night with assistance of one, gait belt and use of walker. Voids small amounts (100-150 cc) at a time. Denies discomfort with voiding. Urine is clear yellow. Pt says this is a normal pattern for her. NS infuses in IV site to left hand. This morning the IV fell out at she was moving about in bed. IV restarted in right forearm. Has not required PRN pain medication during the night. Polar ice pack to left knee through the night. Patient reports she feels that she slept well.
[2016-10-10 00:34] VITALS: BP 100/47; PULSE 48; RESP 16; O2SAT 98
[2016-10-10] MEDS: NORMAL SALINE 1,000 ML IV SCH ×2 (01:20→13:01)
[2016-10-10] MEDS: CEFAZOLIN 2 G in NORMAL SALINE 100 ML IV SCH (01:22)
[2016-10-10 05:12] LABS: HCT - HEMATOCRIT 30.4 % (36-46); HGB - HEMOGLOBIN 10.3 GM/DL (12-16); MEAN CORPUSCULAR HGB 32.9 UUG (26-34); MEAN CORPUSCULAR HGB CONC(MCHC 33.9 GM/DL (31-37); MEAN CORPUSCULAR VOLUME 97.1 UM3 (80-100); MEAN PLATELET VOLUME 10.4 UM3 (9.4-12.4); RED BLOOD COUNT 3.13 M/MM3 (4.00-5.20); WBC - WHITE BLOOD COUNT 14.7 T/MM3 (4.5-11.0)
[2016-10-10 05:28] LABS: ANION GAP 9 MEQ/L (5-15); BUN/CREATININE RATIO 49 RATIO (6-26); CALCIUM 8.4 MG/DL (8.4-10.2); CHLORIDE 105 MEQ/L (98-107); CO2 - CARBON DIOXIDE 26 MEQ/L (22-30); CREATININE 0.7 MG/DL (0.7-1.2); GLOMERULAR FILTRATION RATE 79; GLUCOSE 128 MG/DL (65-110); POTASSIUM 4.2 MEQ/L (3.6-5); SODIUM 140 MEQ/L (134-144)
[2016-10-10] MEDS: NOZIN NASAL SWAB NS SCH ×2 (06:16→13:01)
[2016-10-10 07:20] VITALS: BP 91/51; PULSE 52; RESP 16; TEMP 95.7; O2SAT 94
--- NOTE | 2016-10-10 08:35 | NUR ---
CM CM IN TO VISIT WITH PT. SHE IS ALERT AND ORIENTED. SHE WOULD LIKE AT SCREEN FOR IRU. SHE WOULD LIKE REFERRALS TO [facility], [facility], AND [facility] FOR SNF. SHE IS GIVEN CM CONTACT INFORMATION. CLAUE SCORE IS 8. Addendum: 10/10/16 at 0836 by TERI CALDERON RN Amended: Links added.
--- NOTE | 2016-10-10 08:38 | PDORTHOPN ---
Subjective Date DATE: 10/10/16 TIME: 08:16 Subjective Bhavani is doing well. No pain issues this AM. She has some reflux issues when lying flat. No CP, cough or SOA. Denies feeling dizzy or lightheaded. HR in the 40-50's. BPs a little low. Objective Vital Signs Vital signs Vital Signs 10/10/16 10/10/16 00:34 07:20 Temp 95.7 Pulse 48 52 Resp 16 16 B/P 100/47 91/51 Pulse Ox 98 94 O2 Delivery Nasal Cannula Nasal Cannula O2 Flow Rate 2.00 2.00 Height (Feet): 5 Height (Inches): 0.00 Weight (Kilograms): 74.100 General General Appearance: No Acute Distress Respiratory (Brief) Respiratory Brief: FOUND: non-labored Cardiovascular (Brief) Cardiac: FOUND: other (HR latia in the 40-50's ), peripheral pulses intact Surgical Site Incision: FOUND: Mepilex dressing intact, no drainage Neurologic (Brief) Neurological Brief: FOUND: extremities w/o deficits, neuro intact Psychiatric (Brief) Psychiatric Brief: FOUND: alert, no acute distress, normal affect Laboratory Laboratory Laboratory Tests 10/10/16 04:11 Laboratory Tests 10/09/16 07:19 10/10/16 04:11 Assessment & Plan Problems: (1) 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 SCD's, Aspirin and early mobilization for DVT coverage. PT/OT services to improve independent function. Discharge Planning per Case Management. Pt may require IRU or similar placement. Will arrange f/u with Dr Santana in 3 weeks for osteoporosis evaluation due to bone density noted in surgery. (2) Bradycardia Status: Acute Assessment & Plan: x HR on her pre op exam was 60. She has been in the upper 40's & 50's most of the night. Pt is not symptomatic and has no anginal type sx. Pt will be placed on Telemetry to monitor closely. She is not on any beta-blockers. (3) DMII (diabetes mellitus, type 2) Status: Chronic Assessment & Plan: Pt is not on any meds for DM II. Will continue to monitor and us SS insulin prn. Carb controlled 1800 elvis diet. (4) HTN (hypertension) Status: Chronic Assessment & Plan: Pressures have been low this AM Will hold Prinivil-HCTZ med. Monitor Hospital Course Summary Disclaimer The visit summary below is not to be considered part of the above Progress Note. WARREN PETTIT October 10, 2016 08:19
--- NOTE | 2016-10-10 08:42 | NUR ---
CM [facility] IS FULL. NO SNF BED AVAILABLE.
[2016-10-10] MEDS ORDERED: LISINOPRIL/HCTZ 20mg/25mg TABLET PO SCH (09:00)
[2016-10-10] MEDS ORDERED: POLYETHYL.GLYCOL 3350 PACKET 17gm PO SCH (09:00)
[2016-10-10] MEDS: TIMOLOL 0.5% EYE DROPS 5ml LEFT EYE SCH (09:00)
[2016-10-10] MEDS ORDERED: DOCUSATE SODIUM 100 MG CAPSULE PO SCH (09:00)
[2016-10-10] MEDS: ACETAMINOPHEN 325 MG TABLET PO SCH ×2 (09:19→13:05)
[2016-10-10] MEDS: ASPIRIN *EC* 325mg TABLET PO SCH (09:19)
[2016-10-10 10:07] VITALS: PULSE 52; RESP 16
[2016-10-10] MEDS: TRAMADOL 50 MG TABLET PO PRN ×3 (10:22→16:48)
--- NOTE | 2016-10-10 11:33 | NUR ---
IRU referral received. Met with patient, son, and daughter. Reviewed programmatic expectations of IRU and patient acknowledged expectation of 3 hours of therapy, 5 days/week. Shared that updated PT/OT evals will help determine need for IRU. Patient motivated to meet therapy expectations. 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 Explained admission process. Will review case with Dr. Rose to determine if admission criteria is met. CM notified.
--- NOTE | 2016-10-10 12:15 | NUR ---
CM PT IS NOT ACCEPTED TO IRU. CM IN TO VISIT WITH PT. A FEMALE FAMILY MEMBER IS PRESENT. SHE IS MADE AWARE THAT SHE DID NOT QUALIFY FOR IRU. SHE IS MADE AWARE THAT SHE HAS BEEN ACCEPTED TO [facility] AND [facility] FOR SNF. SHE AND FAMILY WILL DISCUSS OPTIONS AND LET CM KNOW WHICH FACILITY SHE WOULD LIKE TO USE. CM MAKES THEM AWARE THAT SHE ANTICIPATES DC TODAY. CM ROLE IN TRANSITION OF CARE IS DISCUSSED.
--- NOTE | 2016-10-10 12:22 | PDOCECFAO ---
Admission Orders Admission Orders Admit to: Detention Allergies: Coded Allergies: No Known Drug Allergies (Verified Allergy, Unknown, 10/09/16) Admitting Diagnosis Lt Total Knee Arthroplasty Admitting Physician Tawanna Sauer MD Code Status Full Code Anticipated LOS: 30 days or less Rehab Potential: Good Rehab Prognosis: Good Diet: No Concentrated Sweets May use Facility Protocol /SO: Yes May Have Flu Vaccine: Yes Evaluations/Treat: PT, OT Detention Certification I certify that SNF services are required to be given on an Inpatient basis because of the patients need for intermediate care on a continuing basis for the condition(s) for which he/she received inpatient hospital services prior to his/her transfer to the SNF. SNF inpatient care is necessary for the following reasons Postop Assessment Care Cardiac or Respiratory Arrest In Event of Arrest: Start CPR,call 911,to ER Resident is Aware of Diagnosis: Yes TAWANNA SAUER MD October 10, 2016 12:22
[2016-10-10 12:27] VITALS: BP 115/58; PULSE 53; RESP 16; TEMP 96.6; O2SAT 98
--- NOTE | 2016-10-10 13:08 | NUR ---
MARGARETH CM IN TO VISIT WITH PT. SHE IS ALERT AND ORIENTED. SHE STATES THAT IT IS HER DECISION TO GO TO FOR SNF. [facility] IS MADE AWARE. Addendum: 10/10/16 at 1309 by TERI CALDERON RN Amended: Links added.
[2016-10-10] MEDS ORDERED: PNEUMOCOCCAL 13 VACCINE 0.5 ML SYRINGE IM ONE (14:00)
[2016-10-10] MEDS ORDERED: PNEUMOCOCCAL VAC. ADMIN. CHARGE INJ ONE (15:19)
[2016-10-10 16:15] VITALS: BP 120/53; PULSE 52; RESP 16; TEMP 95.7; O2SAT 98
[2016-10-10] MEDS ORDERED: MAGN400O4 PO (16:24)
[2016-10-10] MEDS ORDERED: ASPI-917 PO (16:24)
[2016-10-10] MEDS ORDERED: TRAM50TA53 PO (16:24)
[2016-10-10] MEDS ORDERED: DOCU-168 PO (16:24)
[2016-10-10] MEDS ORDERED: ACET-2321 PO (16:24)
[2016-10-10] MEDS ORDERED: POLY17PO6 PO (16:24)
--- NOTE | 2016-10-10 16:34 | DSPDOC ---
General Date Date DATE: 10/10/16 TIME: 16:29 Attending Physician Tan Sauer MD Admitting Physician Tan Sauer MD Consulting Physician Imelda Russell Admitting Diagnosis PRIMARY DEGENERATIVE JOINT DISEASE LEFT KNEE Discharge Diagnosis Primary DJD left knee. Procedures Left total knee arthroplasty History of Present Illness HPI Elements This patient was admitted for elective surgical tx of end stage degenerative joint disease that failed to respond to conservative treatment. Further details of this is found in the admission H&P. Hospital Course After appropriate preoperative clearance and signing of operative consent, the patient was given IV antibiotics, according to orthopedic protocol. The patient was taken to the operating room and underwent elective left total knee arthroplasty. Following surgery, antibiotics were discontinued less than 24 hours according to joint protocol. Aspirin was initiated and SCDs added for DVT prevention. The dressing was clean, dry, and intact. Pain control was obtained via multimodal approach. Bowel motivation addressed with scheduled and PRN medications. Early mobilization was initiated through PT services. Discharge arrangements made by a collaborative effort between the patient and Case Management. She had a bradycardia with HR 40-60 but was asymptomatic. Her PCP was notified and pt will f/u with her after discharge. VS will be monitored at the [facility] with orders to contact her PCP if HR < 45. BP was mildly low and Lisinopril / HCTZ was held on POD #1. BP had improved prior to discharge. Follow-up is scheduled in 2-3 weeks. Discharge instructions given by orthopedic providers and nursing staff at discharge. Discharge condition was good. 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 SCD's, Aspirin and early mobilization for DVT coverage. PT/OT services to improve independent function. Discharge Planning per Case Management. Pt may require IRU or similar placement. Will arrange f/u with Dr Santana in 3 weeks for osteoporosis evaluation due to bone density noted in surgery. (2) Bradycardia Status: Acute Assessment & Plan: x HR on her pre op exam was 60. She has been in the upper 40's & 50's most of the night. Pt is not symptomatic and has no anginal type sx. HR 52 at discharge. Will continue to monitor. (3) DMII (diabetes mellitus, type 2) Status: Chronic Assessment & Plan: Monitor (4) HTN (hypertension) Status: Chronic Assessment & Plan: BPs improved at time of discharge. Laboratory Laboratory Tests Test 10/09/16 20:15 10/10/16 04:11 10/10/16 06:35 10/10/16 10:04 Glucometer 178mg/dL 113mg/dL 139mg/dL White Blood Count 14.7T/MM3 Red Blood Count 3.13M/MM3 Hemoglobin 10.3GM/DL Hematocrit 30.4% Mean Corpuscular Volume 97.1UM3 Mean Corpuscular Hemoglobin 32.9UUG Mean Corpuscular Hemoglobin Concent 33.9GM/DL RDW Standard Deviation 41.2FL Platelet Count 203T/MM3 Mean Platelet Volume 10.4UM3 Turbidity < 20 Sodium Level 140MEQ/L Potassium Level 4.2MEQ/L Chloride Level 105MEQ/L Carbon Dioxide Level 26MEQ/L Anion Gap 9MEQ/L Blood Urea Nitrogen 34.0MG/DL Creatinine 0.7MG/DL Glomerular Filtration Rate Calc 79 BUN/Creatinine Ratio 49RATIO Glucose Level 128MG/DL Calculated Osmolality 279MOSM/KG Calcium Level 8.4MG/DL Icterus Index < 2 Chemistry Specimen Hemolysis < 15 Test 10/10/16 13:54 Glucometer 170mg/dL Home Meds Active Scripts Polyethylene Glycol 3350 (Miralax) 17 Gm Powd.pack, 17 G PO DAILY Y for CONSTIPATION, #1 BOTTLE Take 17 Grams (1 capful), by mouth, once a day. Prov:WARREN PETTIT 10/10/16 Magnesium Hydroxide (Milk of Magnesia) 400 Mg/5 Ml Oral.susp, 30 ML PO 0800 for 30 Days Prov:WARREN PETTIT 10/10/16 Docusate Sodium (Colace) 100 Mg Capsule, 100 MG PO BID, #60 CAP Prov:WRAREN PETTIT 10/10/16 Tramadol HCl (Ultram) 50 Mg Tablet, 50-100 MG PO Q6H Y for PAIN, #50 TAB Prov:WARREN PETTIT 10/10/16 Aspirin *EC* (Aspirin EC) 325 Mg Tablet.dr, 325 MG PO BID, #84 TAB Prov:WARREN PETTIT 10/10/16 Acetaminophen (Tylenol) 325 Mg Tablet, 650 MG PO QID, #60 TAB Prov:WARREN PETTIT 10/10/16 Reported Medications Cyanocobalamin (Vitamin B-12) (Vitamin B-12) 1,000 Mcg Tablet, 1 TAB PO DAILY, TAB 10/02/16 Vit A/Vit C/Vit E/Zinc/Copper (Preservision Areds Softgel) 1 Each Capsule, 1 CAP PO DAILY 10/02/16 Famotidine (Famotidine) 20 Mg Tablet, 1 TAB PO HS, TAB 10/02/16 Aspirin *EC* (Low Dose Aspirin EC) 81 Mg Tablet.dr, 1 TAB PO DAILY, TAB 10/02/16 Timolol Maleate 0.5% (Timolol Maleate 0.5%) 15 Ml Drops, 1 DROP LEFT EYE BID 07/08/13 Ascorbic Acid (Vitamin C) 1,000 Mg Tablet, 1000 MG PO DAILY 07/14/09 Ubidecarenone (Co Q-10) 100 Mg Capsule, 100 MG PO HS 07/14/09 Cholecalciferol (Vitamin D) 1,000 Unit Capsule, 1000 UNIT PO DAILY 07/14/09 Beta-Carotene(A) W-C & E/Min (Vision Vitamins) 1 Tab Tablet, 1 TAB PO DAILY 07/14/09 Lisinopril/Hydrochlorothiazide (Lisinopril-Hctz 20-25MG Tab) 1 Tab Tablet, 1 TAB PO DAILY 07/14/09 Discharge Disposition Please refer to Case Management Notes for patient's disposition. Estimated Blood Loss 150.0 WARREN PETTIT October 10, 2016 16:33
--- NOTE | 2016-10-10 16:54 | NUR ---
DISCHARGE NURSING NOTE PT ALERT AND ORIENTED X3. VITAL SIGNS STABLE AT TIME OF DISCHARGE. DISCHARGE PACKET SENT WITH [facility]. PT'S IV SITE DC'D. NO CONCERNS NOTED. REPORT CALLED TO TROY DUMAS RN AT [facility] WHO ACCEPTED PT CARE.
[2016-10-11] MEDS ORDERED: MILK OF MAGNESIA 30 ML SUSP PO SCH (08:00)
[2016-10-11] MEDS ORDERED: BISACODYL 10 MG SUPPOSITORY RECTALLY SCH (20:00)
== END 2016-10-10 16:54 | DRG 470 ==
LOC: SRG 06:50
PROVIDERS: ADMIT Orthopaedic Surgery; ATTEND Orthopaedic Surgery
PROC: 0SRD0J9 Replacement of Left Knee Joint with Synthetic Substitute, Cemented, Open Approach (ICD-10-PCS; principal; 2016-10-09 09:46)
DX: M17.12 Unilateral primary osteoarthritis, left knee (principal); Z96.651 Presence of right artificial knee joint; R00.1 Bradycardia, unspecified; E11.9 Type 2 diabetes mellitus without complications; I10 Essential (primary) hypertension; M51.36 Other intervertebral disc degeneration, lumbar region; E78.00 Pure hypercholesterolemia, unspecified; E66.3 Overweight; Z68.31 Body mass index [BMI] 31.0-31.9, adult; Z23 Encounter for immunization
CPT/HCPCS: 36415; 80048; 82948; 85027